=== PATIENT | female | born 1955 | race Caucasian/White ===

== ENCOUNTER 2020-09-11 04:42 | Observation (INO) ==
[2020-09-11] MEDS ORDERED: Ondansetron 4 MG/2 ML VIAL IVP PRN (10:14)
[2020-09-11] MEDS ORDERED: Naloxone 0.4 MG/ML INJ IVP PRN (10:14)
[2020-09-11] MEDS ORDERED: Perflutren Lipid Microsphere 1.3 ML in 0.9 % Sodium Chloride 8.7 ML IVP PRN (10:16)
[2020-09-11] MEDS: atenoloL 50 MG TABLET PO SCH (11:02)
[2020-09-11 11:05] LABS: Basophils % 0.6 %; Eosinophils # 0.1 K/mcL (0.0-0.6); Eosinophils % 1.7 %; Hematocrit 36.5 % (35.3-44.9); Immature Granulocytes % 0.3 % (0-4); Lymphocytes # 1.6 K/mcL (0.6-4.6); Lymphocytes % 21.9 %; Mean Corpuscular HGB Conc 32.9 g/dL (31.6-35.5); Mean Corpuscular Hemoglobin 28.7 pg (28.0-33.3); Mean Corpuscular Volume 87.3 fL (83.0-100.0); Mean Platelet Volume 8.6 fL (9.4-12.4); Monocytes # 0.5 K/mcL (0.0-1.3); Monocytes % 7.1 %; Neutrophils # 4.9 K/mcL (1.6-8.9); Platelet Count 194 K/mcL (140-400); Red Blood Count 4.18 M/mcL (3.82-4.97); Red Cell Distribution Width 13.4 % (11.5-14.5); Segmented Neutrophils % 68.4 %; White Blood Count 7.2 K/mcL (4.3-11.1)
[2020-09-11 11:53] LABS: BUN/Creatinine Ratio 14 (6-26); Blood Urea Nitrogen 12 mg/dL (8-23); Calcium 9.4 mg/dL (8.6-10.3); Carbon Dioxide 24 mEq/L (23-29); Chloride 106 mEq/L (98-107); Glucose 101 mg/dL (70-105); Osmolality,Calculated 292 (280-300); Potassium 3.8 mEq/L (3.5-5.1); Sodium 141 mEq/L (136-145); Troponin I < 0.03 ng/mL (< 0.04); eGFR For African Americans > 60 (> 60); eGFR For Non-African Americans > 60 (> 60)
[2020-09-11] MEDS ORDERED: Ibuprofen 400 MG TABLET PO ONE (15:06)
[2020-09-11] MEDS: *HR* Heparin 5,000 UNIT/ML VIAL SQ SCH (19:11)
[2020-09-11 19:25] LABS: Bilirubin,Urine Negative (Negative); Blood,Urine Negative (Negative); Clarity,Urine Clear (Clear); Color,Urine Light-Yellow (Yellow); Glucose,Urine (UA) Normal (Normal); Ketones,Urine Negative (Negative); Leukocyte Esterase,Urine Negative (Negative); Nitrite,Urine Negative (Negative); Protein,Urine Negative (Neg-Trace); Specific Gravity,Urine 1.023 (1.010-1.025); Urobilinogen,Urine Normal (Normal)
[2020-09-11] MEDS ORDERED: traZODone 50 MG TABLET PO SCH (21:00)
[2020-09-11] MEDS ORDERED: Loratadine 10 MG TABLET PO SCH (21:00)
[2020-09-11] MEDS ORDERED: tiZANidine 4 MG TABLET PO SCH (21:00)
[2020-09-12 01:02] LABS: Basophils # 0.1 K/mcL (0.0-0.2); Basophils % 0.7 %; Eosinophils # 0.2 K/mcL (0.0-0.6); Eosinophils % 2.4 %; Hematocrit 34.1 % (35.3-44.9); Hemoglobin 11.2 g/dL (11.5-15.4); Immature Granulocytes % 0.3 % (0-4); Lymphocytes % 29.8 %; Mean Corpuscular HGB Conc 32.8 g/dL (31.6-35.5); Mean Corpuscular Hemoglobin 28.6 pg (28.0-33.3); Mean Corpuscular Volume 87.2 fL (83.0-100.0); Monocytes # 0.5 K/mcL (0.0-1.3); Platelet Count 190 K/mcL (140-400); Red Blood Count 3.91 M/mcL (3.82-4.97); Red Cell Distribution Width 13.6 % (11.5-14.5); Segmented Neutrophils % 58.8 %; White Blood Count 6.7 K/mcL (4.3-11.1)
[2020-09-12 01:09] LABS: INR 1.1; Prothrombin Time 12.4 Seconds (9.4-12.1)
[2020-09-12 01:24] LABS: BUN/Creatinine Ratio 19 (6-26); Blood Urea Nitrogen 18 mg/dL (8-23); Calcium 9.1 mg/dL (8.6-10.3); Carbon Dioxide 26 mEq/L (23-29); Chloride 106 mEq/L (98-107); Chol/HDL Ratio 4.1 (0-4.9); Cholesterol 132 mg/dL (< 200); Glucose 121 mg/dL (70-105); HDL Cholesterol 32 mg/dL (40-59); LDL Cholesterol,Calculated 48 mg/dL (< 100); Magnesium 1.8 mg/dL (1.6-2.6); Osmolality,Calculated 295 (280-300); Potassium 3.6 mEq/L (3.5-5.1); Sodium 141 mEq/L (136-145); Triglycerides 262 mg/dL (< 150); eGFR For African Americans > 60 (> 60); eGFR For Non-African Americans > 60 (> 60)
[2020-09-12 01:29] LABS: Estimated Average Glucose 131 mg/dl; Hemoglobin A1C 6.2 %
[2020-09-12] MEDS: *HR* Heparin 5,000 UNIT/ML VIAL SQ SCH (04:17)
[2020-09-12] MEDS ORDERED: Isovue-370 500 ML BOTTLE IVP ONE (07:34)
[2020-09-12] MEDS ORDERED: Morphine Sulfate 2 MG/ML SYRINGE IVP ONE (10:02)
[2020-09-12] MEDS: atenoloL 50 MG TABLET PO SCH (10:08)
[2020-09-12 10:48] VITALS: BP 151/80; PULSE 64; TEMP 98.1; O2SAT 93
== END 2020-09-12 14:20 | disposition home or self-care (01) ==
LOC: CDU → SUATTDRO 09:16 → CDU 17:04 → 3BNU 09-12 06:09
PROVIDERS: ADMIT Internal Medicine; ATTEND Internal Medicine